=== PATIENT | male | born 1945 | race Caucasian/White ===

== ENCOUNTER 2021-05-29 07:49 | Outpatient (CLI) | payer MEDICARE, BC | END 2021-05-29 07:50 | disposition home or self-care (01) | LOC: CSHMRI 07:49 | PROVIDERS: ATTEND Psychiatry & Neurology Neurology | DX: H53.2 Diplopia (principal); R90.82 White matter disease, unspecified | CPT/HCPCS: 70544; 70553 ==

== ENCOUNTER 2024-05-25 08:42 | Outpatient (CLI) | payer MEDICARE, BC | END 2024-05-25 08:43 | disposition home or self-care (01) | LOC: CSHSLEEP 08:42 | PROVIDERS: ATTEND Family Medicine | DX: G47.10 Hypersomnia, unspecified (principal); G47.33 Obstructive sleep apnea (adult) (pediatric); R53.83 Other fatigue | CPT/HCPCS: 95810 ==

== ENCOUNTER 2024-11-30 08:49 | Outpatient (CLI) | payer MEDICARE | END 2024-11-30 08:50 | disposition home or self-care (01) | LOC: CSHSLEEP 08:49 | PROVIDERS: ATTEND Internal Medicine | DX: G47.33 Obstructive sleep apnea (adult) (pediatric) (principal); R53.83 Other fatigue; R06.83 Snoring | CPT/HCPCS: 95800 ==

== ENCOUNTER 2025-02-14 08:46 | Outpatient (CLI) | payer MEDICARE | END 2025-02-14 08:47 | disposition home or self-care (01) | LOC: CSHSLEEP 08:46 | PROVIDERS: ATTEND Family Medicine | DX: G47.33 Obstructive sleep apnea (adult) (pediatric) (principal); R53.83 Other fatigue; R06.83 Snoring; G47.31 Primary central sleep apnea | CPT/HCPCS: 95811 ==